=== PATIENT | female | born 1940 | race Caucasian/White ===

== ENCOUNTER 2019-09-24 14:35 | Inpatient (IN) | payer OTHER ==
[~2019-09-24] VITALS: Ht 154.9 cm; Wt 62.9 kg
[2019-09-24 14:47] VITALS: BP 116/46
[2019-09-24 15:11] LABS: BASO # 0.1 10*3/uL (0.0-0.1); BASO % 1.1 % (0.0-1.0); EOS # 0.1 10*3/uL (0.0-0.4); EOS % 1.8 % (1.0-4.0); LYMPH # 1.1 10*3/uL (1.3-4.4); LYMPH % 15.2 % (27.0-41.0); MEAN CELL VOLUME 98.2 fl (81.0-99.0); MEAN CORPUSCULAR HGB CONC 32.6 g/dl (33.0-37.0); MEAN PLATELET VOLUME 10.9 fl (9.6-12.3); MONO % 14.2 % (3.0-9.0); NEUT # 4.7 10*3/uL (2.3-7.9); NEUT % 67.1 % (47.0-73.0); PLATELET COUNT AUTOMATED 210 10*3/uL (130-400); RED BLOOD COUNT 3.87 10*6/uL (4.10-5.10); RED CELL DISTRI WIDTH 15.5 % (0-14.5)
[2019-09-24 15:22] LABS: ACT PARTIAL THROMBO TIME 24.9 SECONDS (20.0-32.1); INTERNATIONAL NORM RATIO 1.2 (2.0-3.5)
[2019-09-24 15:26] LABS: ALBUMIN 2.5 gm/dl (3.1-4.5); ALKALINE PHOSPHATASE 224 U/L (45-117); BUN 21 mg/dl (7-24); CHLORIDE 106 mmol/L (98-107); CREATININE 1.02 mg/dL (0.55-1.02); LIPASE 149 U/L (73-393); POTASSIUM 4.5 mmol/L (3.5-5.1); SGOT/AST 71 IU/L (3-35); SGPT/ALT 47 U/L (12-78); SODIUM 137 mmol/L (136-145); TOTAL PROTEIN 6.9 gm/dL (6.4-8.2); TROPONIN I 0.019 ng/ml (<0.045)
--- NOTE | 2019-09-24 16:02 | NUR ---
PT RESTING COMFORTABLY IN BED. SAFETY PRECAUTION INTACT. CALL LIGHT WITHIN REACH.
[2019-09-24 17:49] LABS: BILIRUBIN NEGATIVE (NEGATIVE); BLOOD TRACE-INTACT (NEGATIVE); CLARITY SL CLOUDY (CLEAR); COLOR YELLOW (YELLOW); GLUCOSE NEGATIVE (NEGATIVE); KETONE NEGATIVE (NEGATIVE)
[2019-09-24 17:50] LABS: LEUKO ESTERASE NEGATIVE (NEGATIVE); NITRITE POSITIVE (NEGATIVE); UROBILINOGEN 0.2 E.U./dl (0.2-1.0)
[2019-09-24 17:55] LABS: BACTERIA 4+; MUCOUS TRACE; RBC 0-2 rbc/hpf (0-2)
--- NOTE | 2019-09-24 18:08 | NUR ---
A 79, admitted to , under the services of YEHUDA Quiles DO with a diagnosis of CHF. Chief complaint is GENERALIZED WEAKNESS, LOWER EXTREMITY EDEMA, DRY COUGH. Patient arrived via bed from ER. Monitor applied. Initial assessment completed. Vital signs taken and recorded. YEHUDA QUILES DO notified of admission to the unit. Orders received. See assessment for past medical history, medications and allergies. Patient and/or family oriented to unit. [facility]. Clothing/patient valuable form completed. RENU PALM
[2019-09-24 18:20] VITALS: BP 124/52
--- NOTE | 2019-09-24 18:57 | NUR ---
UNABLE TO VERIFY MED REC DUE TO GRANDDAUGHTER TOOK MED LIST HOME WITH HER - WILL PASS ALONG TO RECEIVING NURSE.
--- NOTE | 2019-09-24 18:57 | NUR ---
PAGED REGARDING CONSULT
[2019-09-24 20:00] VITALS: BP 122/53
[2019-09-24] MEDS ORDERED: IMDUR SA30 MG PO (21:20)
[2019-09-24] MEDS ORDERED: LACTULOSE10 GM/151 PO (21:21)
[2019-09-24] MEDS ORDERED: TOPROL XL50 M1 PO (21:21)
[2019-09-24] MEDS ORDERED: PROTONIX40 MG PO (21:22)
[2019-09-24] MEDS ORDERED: ALDACTONE50 M1 PO (21:22)
[2019-09-24] MEDS ORDERED: LASIX40 MG PO (21:23)
[2019-09-24] MEDS ORDERED: XANAX0.25 MG PO (21:24)
[2019-09-24] MEDS ORDERED: XIFAXAN550 MG PO (21:24)
--- NOTE | 2019-09-24 21:34 | NUR ---
NOTIFIED DR. MEJIA PATIENTS MED REC IS UP TO DATE.
[2019-09-25] VITALS: BP 103/41
[2019-09-25 06:12] LABS: BASO # 0.1 10*3/uL (0.0-0.1); BASO % 1.5 % (0.0-1.0); EOS # 0.3 10*3/uL (0.0-0.4); EOS % 4.8 % (1.0-4.0); HEMATOCRIT 29.1 % (37.0-47.0); LYMPH # 1.5 10*3/uL (1.3-4.4); LYMPH % 24.4 % (27.0-41.0); MEAN CELL VOLUME 96.4 fl (81.0-99.0); MEAN CORPUSCULAR HGB 32.5 pg (27.0-31.0); MEAN CORPUSCULAR HGB CONC 33.7 g/dl (33.0-37.0); MEAN PLATELET VOLUME 11.1 fl (9.6-12.3); MONO % 16.1 % (3.0-9.0); NEUT # 3.3 10*3/uL (2.3-7.9); NEUT % 52.7 % (47.0-73.0); PLATELET COUNT AUTOMATED 162 10*3/uL (130-400); RED BLOOD COUNT 3.02 10*6/uL (4.10-5.10); RED CELL DISTRI WIDTH 15.4 % (0-14.5); WHITE BLOOD COUNT 6.2 10*3/uL (4.8-10.8)
[2019-09-25 06:14] LABS: ALBUMIN 1.8 gm/dl (3.1-4.5); BUN 23 mg/dl (7-24); CHLORIDE 108 mmol/L (98-107); CHOLESTEROL 124 mg/dL (<200); POTASSIUM 3.9 mmol/L (3.5-5.1); SGOT/AST 41 IU/L (3-35); SGPT/ALT 30 U/L (12-78); SODIUM 140 mmol/L (136-145); TOTAL PROTEIN 4.7 gm/dL (6.4-8.2)
[2019-09-25 06:26] LABS: ALKALINE PHOSPHATASE 146 U/L (45-117); CREATININE 0.93 mg/dL (0.55-1.02); HDL CHOLESTEROL 16 mg/dl (40-60); LDL CHOLESTEROL 96 mg/dL (9-159); TRIGLYCERIDES 62 mg/dl (<150); VLDL CHOLESTEROL 12 mg/dL (6-40)
[2019-09-25 08:00] VITALS: BP 143/58
--- NOTE | 2019-09-25 08:20 | NUR ---
IN PT ROOM AT THIS TIME TO COMPLETE ASSESSMENT. PT STATES THAT SHE IS FEELING MUCH BETTER THAN WHEN SHE FIRST CAME IN, SHE ALSO NOTES THAT THE SWELLING IN HER LEGS HAS DECREASED COMPARED TO YESTERDAY. PT IS WAITING TO HAVE HER ECHO DONE. CALL LIGHT WITHIN REACH, WILL CONTINUE TO MONITOR
--- NOTE | 2019-09-25 09:30 | NUR ---
Occupational Therapy evaluation completed on four with full evaluation to follow. Recommend occupational therapy per plan of care and home with HH upon discharge. Thank you for this referral. Niyah Wisdom OTR/L
--- NOTE | 2019-09-25 09:30 | NUR ---
Vehicle Body Sander in to talk to patient. Patient states lives at home with alone. There are 9 steps in the home. Physician: karissa deluna Pharmacy: out of town Home health services: none Patient's level of ADLs: INDEPENDENT Patient has working utilities: all working DME: none Follow-up physician's appointment after d/c: will be made by hospitalist nurse director upon discharge Does patient want to access PORTAL?: no Discharge plan discussed with patient, she states she lives at home alone, she is independent in adls and ambulation, does her own yard work including mowing the lawn, drives, she states she will return home when medically stable and denies any home needs, case management will follow. KEMI PITT
--- NOTE | 2019-09-25 09:30 | NUR ---
Physical Therapy evaluation completed on fourth floor with full evaluation to follow. Recommend physical therapy per plan of care and home with family support/assist and services upon discharge. Thank you for this referral. Ellen New PT
--- NOTE | 2019-09-25 09:48 | NUR ---
DR SAM IN TO SEE PATIENT
[2019-09-25 12:00] VITALS: BP 131/59
--- NOTE | 2019-09-25 12:00 | NUR ---
ASSUMED CARE OF PT AT THIS TIME. RESTING IN BED. VOICES NO CONCERNS. NO S/S OF DISTRESS NOTED. RESPS EASY, NON LABORED. VSS. WHITE BOARD UPDATED. CALL LIGHT WITHIN REACH
--- NOTE | 2019-09-25 13:14 | NUR ---
PT TAKEN OFF FLOOR TO ULTRASOUND
--- NOTE | 2019-09-25 13:50 | NUR ---
PT BACK FROM ULTRASOUND. RESTING IN BED. VSS.
[2019-09-25 16:00] VITALS: BP 134/54
--- NOTE | 2019-09-25 17:11 | NUR ---
PT REFUSING LACTULOSE, STATES SHE JUST HAD A BOWEL MOVEMENT AND ONLY TAKES LACTULOSE ONCE A DAY AND DOES NOT NEED ANYMORE TODAY
--- NOTE | 2019-09-25 17:15 | NUR ---
Shift chart check completed.
[2019-09-25 20:00] VITALS: BP 114/52
--- NOTE | 2019-09-25 20:00 | NUR ---
PATIENT LAYING IN BED, RESPIRATIONS EASY, NON LABORED. VOICES NO COMPLAINTS. BED IN LOWEST POSITION,CALL LIGHT WITHIN REACH. WILL CONTINUE TO MONITOR.
[2019-09-26] VITALS: BP 107/40
--- NOTE | 2019-09-26 02:00 | NUR ---
PATIENT REQUESTING XANEX TO HELP HER RELAX/SLEEP. XANEX GIVEN AT THIS TIME. WILL CHECK EFFECTIVENESS
--- NOTE | 2019-09-26 04:43 | NUR ---
PATIENT SLEEPING, NO SIGNS OF DISTRESS. XANEX EFFECTIVE. WILL CONTINUE TO MONITOR.
[2019-09-26 06:25] LABS: BASO # 0.1 10*3/uL (0.0-0.1); BASO % 1.1 % (0.0-1.0); EOS # 0.3 10*3/uL (0.0-0.4); EOS % 5.1 % (1.0-4.0); HEMATOCRIT 30.1 % (37.0-47.0); LYMPH # 1.6 10*3/uL (1.3-4.4); LYMPH % 24.4 % (27.0-41.0); MEAN CELL VOLUME 95.6 fl (81.0-99.0); MEAN CORPUSCULAR HGB 32.4 pg (27.0-31.0); MEAN CORPUSCULAR HGB CONC 33.9 g/dl (33.0-37.0); MEAN PLATELET VOLUME 10.9 fl (9.6-12.3); MONO % 15.4 % (3.0-9.0); NEUT # 3.5 10*3/uL (2.3-7.9); NEUT % 53.7 % (47.0-73.0); PLATELET COUNT AUTOMATED 171 10*3/uL (130-400); RED BLOOD COUNT 3.15 10*6/uL (4.10-5.10); RED CELL DISTRI WIDTH 15.7 % (0-14.5); WHITE BLOOD COUNT 6.4 10*3/uL (4.8-10.8)
[2019-09-26 06:49] LABS: ALBUMIN 1.8 gm/dl (3.1-4.5); BUN 20 mg/dl (7-24); CHLORIDE 107 mmol/L (98-107); POTASSIUM 3.9 mmol/L (3.5-5.1); SGOT/AST 46 IU/L (3-35); SGPT/ALT 30 U/L (12-78); SODIUM 139 mmol/L (136-145)
[2019-09-26 06:52] LABS: CREATININE 0.87 mg/dL (0.55-1.02); TOTAL PROTEIN 4.9 gm/dL (6.4-8.2)
[2019-09-26 06:53] LABS: ALKALINE PHOSPHATASE 160 U/L (45-117)
[2019-09-26 08:00] VITALS: BP 110/56
--- NOTE | 2019-09-26 08:57 | NUR ---
Shift chart check completed.
[2019-09-26] MEDS ORDERED: FUROSEMIDE40 MG PO (11:08)
[2019-09-26 12:00] VITALS: BP 125/59
--- NOTE | 2019-09-26 13:39 | NUR ---
Discharge instructions reviewed with patient. Patient receptive and verbalizes understanding. Follow-up care UNDERSTOOD. Written instructions given to patient. NEW RX GIVEN TO PATIENT PAPER PRINT OUT TO HAVE FILLED. PT HAS NO QUESTIONS ON DISCHARGE AT THIS TIME. IV REMOVED, TELE REMOVED. AWAIT FOR FAMILY TO ARRIVE FOR DISCHARGE MONTRELL TAPIA
--- NOTE | 2019-09-26 13:49 | NUR ---
DISCHARGE VIA WHEELCHAIR
== END 2019-09-26 14:06 | disposition home or self-care (01) | DRG 291 ==
LOC: ED 14:35 → 4E 16:43 → EDHOLD 16:43 → 4E 17:05
PROVIDERS: Emergency Medicine; Student in an Organized Health Care Education/Training Program; ADMIT Internal Medicine
DX: I11.0 Hypertensive heart disease with heart failure (principal); E43 Unspecified severe protein-calorie malnutrition; I50.31 Acute diastolic (congestive) heart failure; E87.2 Acidosis; I85.00 Esophageal varices without bleeding; E03.9 Hypothyroidism, unspecified; I25.10 Atherosclerotic heart disease of native coronary artery without angina pectoris; F41.9 Anxiety disorder, unspecified; R73.9 Hyperglycemia, unspecified; R74.0 Nonspecific elevation of levels of transaminase and lactic acid dehydrogenase [LDH]; K74.60 Unspecified cirrhosis of liver; E66.3 Overweight; M81.0 Age-related osteoporosis without current pathological fracture; E88.09 Other disorders of plasma-protein metabolism, not elsewhere classified; Z68.26 Body mass index [BMI] 26.0-26.9, adult; I25.2 Old myocardial infarction; Z95.5 Presence of coronary angioplasty implant and graft; Z88.2 Allergy status to sulfonamides; Z88.5 Allergy status to narcotic agent; Z90.710 Acquired absence of both cervix and uterus; Z82.49 Family history of ischemic heart disease and other diseases of the circulatory system; Z79.899 Other long term (current) drug therapy

== ENCOUNTER 2019-11-13 15:02 | Inpatient (IN) | payer OTHER ==
[~2019-11-13] VITALS: Ht 152.4 cm; Wt 60.0 kg
[~2019-11-13 15:02] MED LIST: ALDACTONE50 M1 PO; FUROSEMIDE40 MG PO; IMDUR SA30 MG PO; LACTULOSE10 GM/151 PO; LASIX40 MG PO; PROTONIX40 MG PO; TOPROL XL50 M1 PO; XANAX0.25 MG PO; XIFAXAN550 MG PO
[2019-11-13 15:13] VITALS: BP 135/64
[2019-11-13 16:49] LABS: BILIRUBIN NEGATIVE (NEGATIVE); BLOOD NEGATIVE (NEGATIVE); CLARITY CLEAR (CLEAR); COLOR YELLOW (YELLOW); GLUCOSE NEGATIVE (NEGATIVE); KETONE NEGATIVE (NEGATIVE); LEUKO ESTERASE NEGATIVE (NEGATIVE); NITRITE NEGATIVE (NEGATIVE); SPECIFIC GRAVITY 1.015 (1.005-1.030); UROBILINOGEN 0.2 E.U./dl (0.2-1.0)
[2019-11-13 16:54] LABS: WBC 0-2 wbc/hpf (0-5)
[2019-11-13 16:55] LABS: BACTERIA 2+
[2019-11-13 17:05] LABS: BASO # 0.1 10*3/uL (0.0-0.1); BASO % 1.4 % (0.0-1.0); EOS # 0.3 10*3/uL (0.0-0.4); EOS % 4.9 % (1.0-4.0); HEMATOCRIT 35.6 % (37.0-47.0); LYMPH # 1.2 10*3/uL (1.3-4.4); LYMPH % 17.3 % (27.0-41.0); MEAN CELL VOLUME 100.3 fl (81.0-99.0); MEAN CORPUSCULAR HGB CONC 32.9 g/dl (33.0-37.0); MEAN PLATELET VOLUME 10.5 fl (9.6-12.3); MONO # 0.9 10*3/uL (0.1-1.0); MONO % 12.6 % (3.0-9.0); NEUT # 4.4 10*3/uL (2.3-7.9); NEUT % 63.4 % (47.0-73.0); PLATELET COUNT AUTOMATED 204 10*3/uL (130-400); RED BLOOD COUNT 3.55 10*6/uL (4.10-5.10); RED CELL DISTRI WIDTH 15.1 % (0-14.5); WHITE BLOOD COUNT 6.9 10*3/uL (4.8-10.8)
[2019-11-13 17:18] LABS: ACT PARTIAL THROMBO TIME 27.1 SECONDS (20.0-32.1); INTERNATIONAL NORM RATIO 1.2 (2.0-3.5)
[2019-11-13 17:33] LABS: ALBUMIN 2.3 gm/dl (3.1-4.5); ALKALINE PHOSPHATASE 274 U/L (45-117); BUN 27 mg/dl (7-24); CHLORIDE 108 mmol/L (98-107); CREATININE 1.33 mg/dL (0.55-1.02); LIPASE 201 U/L (73-393); POTASSIUM 5.5 mmol/L (3.5-5.1); SGOT/AST 82 IU/L (3-35); SGPT/ALT 59 U/L (12-78); SODIUM 136 mmol/L (136-145); TOTAL PROTEIN 6.4 gm/dL (6.4-8.2)
[2019-11-13 17:40] LABS: TROPONIN I < 0.015 ng/ml (<0.045)
--- NOTE | 2019-11-13 19:15 | NUR ---
Transfer of care from [place] [facility].
--- NOTE | 2019-11-13 19:58 | NUR ---
In to see pt at this time.Pt has 22 gauge in lac with good blood return.Pt is refusing cardic moniter at this time.Pt has dimished lung sounds in bases at this time.Pt also has plus one edema noted in lower legs at this time.Pt appears in no distress at this time.
[2019-11-13 19:59] VITALS: BP 115/45
--- NOTE | 2019-11-13 20:07 | NUR ---
in to see pt.Ok for no moniter at this time and orders to not give vancomycin at this time.
--- NOTE | 2019-11-13 20:08 | NUR ---
Family at bedside at this time.
[2019-11-13 20:20] VITALS: BP 124/46
--- NOTE | 2019-11-13 20:41 | NUR ---
Time: 2019 A 79 year old F admitted to 5E under services of JIMMY ARIZA DO. Pt. arrived via stretcher from ER. Chief complaint: PNEUMONIA. RODDY CAMPOVERDE
[2019-11-14] VITALS: BP 111/43
[2019-11-14 06:27] LABS: BASO # 0.1 10*3/uL (0.0-0.1); BASO % 1.7 % (0.0-1.0); EOS # 0.4 10*3/uL (0.0-0.4); EOS % 6.5 % (1.0-4.0); HEMATOCRIT 31.2 % (37.0-47.0); LYMPH # 1.2 10*3/uL (1.3-4.4); LYMPH % 18.4 % (27.0-41.0); MEAN CELL VOLUME 98.4 fl (81.0-99.0); MEAN CORPUSCULAR HGB 32.8 pg (27.0-31.0); MEAN CORPUSCULAR HGB CONC 33.3 g/dl (33.0-37.0); MEAN PLATELET VOLUME 11.1 fl (9.6-12.3); MONO # 0.9 10*3/uL (0.1-1.0); NEUT # 3.9 10*3/uL (2.3-7.9); NEUT % 59.1 % (47.0-73.0); PLATELET COUNT AUTOMATED 187 10*3/uL (130-400); RED BLOOD COUNT 3.17 10*6/uL (4.10-5.10); RED CELL DISTRI WIDTH 15.2 % (0-14.5); WHITE BLOOD COUNT 6.6 10*3/uL (4.8-10.8)
[2019-11-14 07:05] LABS: ALBUMIN 2.1 gm/dl (3.1-4.5); POTASSIUM 4.7 mmol/L (3.5-5.1)
[2019-11-14 07:14] LABS: CREATININE 1.13 mg/dL (0.55-1.02); THYROID STIM HORMONE (HS) 1.99 uIU/ml (0.358-4.75); TOTAL PROTEIN 5.6 gm/dL (6.4-8.2)
[2019-11-14 07:56] LABS: VITAMIN D, 25-HYDROXY 36.1 ng/mL (30-100)
[2019-11-14 08:00] VITALS: BP 106/60
--- NOTE | 2019-11-14 11:04 | NUR ---
Dot Compliance Manager in to talk to patient. Patient states lives at HOME with DAUGHTER. There are SEVERAL steps in the home. Physician: YULISA Pharmacy: [facility] Home health services: NONE Patient's level of ADLs: MINIMAL ASSIST Patient has working utilities: YES DME: [facility] Follow-up physician's appointment after d/c: WILL BE MADE BY HOSPITALIST NURSE DIRECTOR ON DISCHARGE Does patient want to access PORTAL?: NO Discharge plan PT LIVES AT HOME WITH HER DAUGHTER. STATES SHE NEEDS SOME ASSISTANCE WITH HER CARE. PT IS REQUESING HOME HEALTH ON DISCHARGE BUT NOT SURE OF NAME OF COMPANY SHE WANTS. SHE WILL CHECK WITH DAUGHTER. DENIES ANY OTHER NEEDS. PLAN IS TO RETURN HOME WITH DAUGHTER WHEN MEDICALLY STABLE. STATES SHE WILL HAVE A RIDE HOME. SUZETTE LESLIE
--- NOTE | 2019-11-14 11:44 | NUR ---
ATTEMPTED TO CALL DAUGHTER LYUBOV TO SEE IF SHE COULD PROVIDE ME WITH A NAME OF HOME HEALTH PT HAS HAD IN THE PAST. NO ANSWER AND UNABLE TO LEAVE MESSAGE VOICE MAILBOX NOT SET UP.
[2019-11-14] MEDS ORDERED: DOXYCYCLINE100 M3 PO (12:10)
--- NOTE | 2019-11-14 14:15 | NUR ---
Discharge instructions reviewed with patient/family. Patient receptive and verbalizes understanding. Follow-up care arranged. Written instructions given to patient/family. CARLOS ALBERTO MULLINS
--- NOTE | 2019-11-26 09:39 | NUR ---
Glenny from [facility] called stating they never received any clinicals for her 11/13/2019 admission. Faxed clinicals to [phone] reference number [id number]
== END 2019-11-14 14:15 | disposition home or self-care (01) | DRG 177 ==
LOC: ED 15:02 → EDHOLD 18:46 → 5E 19:11
PROVIDERS: Internal Medicine; Nurse Practitioner Family; ADMIT Emergency Medicine
DX: J69.0 Pneumonitis due to inhalation of food and vomit (principal); N17.0 Acute kidney failure with tubular necrosis; E43 Unspecified severe protein-calorie malnutrition; I85.10 Secondary esophageal varices without bleeding; R74.0 Nonspecific elevation of levels of transaminase and lactic acid dehydrogenase [LDH]; D53.9 Nutritional anemia, unspecified; E87.5 Hyperkalemia; F41.9 Anxiety disorder, unspecified; K74.60 Unspecified cirrhosis of liver; I50.9 Heart failure, unspecified; I25.10 Atherosclerotic heart disease of native coronary artery without angina pectoris; E03.9 Hypothyroidism, unspecified; E66.3 Overweight; M81.0 Age-related osteoporosis without current pathological fracture; L89.151 Pressure ulcer of sacral region, stage 1; Z66 Do not resuscitate; Z51.5 Encounter for palliative care; Z88.5 Allergy status to narcotic agent; Z88.2 Allergy status to sulfonamides; Z90.710 Acquired absence of both cervix and uterus; Z95.5 Presence of coronary angioplasty implant and graft; Z82.49 Family history of ischemic heart disease and other diseases of the circulatory system; Z84.89 Family history of other specified conditions; I25.2 Old myocardial infarction; Z79.899 Other long term (current) drug therapy; Z68.25 Body mass index [BMI] 25.0-25.9, adult

== ENCOUNTER 2019-12-11 17:15 | Emergency (ER) | payer OTHER ==
[~2019-12-11] VITALS: Wt 65.8 kg
[~2019-12-11 17:15] MED LIST changes: +DOXYCYCLINE100 M3 PO
[2019-12-11 18:18] LABS: BASO # 0.1 10*3/uL (0.0-0.1); EOS # 0.2 10*3/uL (0.0-0.4); EOS % 2.2 % (1.0-4.0); HEMATOCRIT 34.3 % (37.0-47.0); LYMPH # 1.1 10*3/uL (1.3-4.4); LYMPH % 13.2 % (27.0-41.0); MEAN CELL VOLUME 96.6 fl (81.0-99.0); MEAN CORPUSCULAR HGB 32.1 pg (27.0-31.0); MEAN CORPUSCULAR HGB CONC 33.2 g/dl (33.0-37.0); MEAN PLATELET VOLUME 10.3 fl (9.6-12.3); MONO # 1.4 10*3/uL (0.1-1.0); MONO % 16.3 % (3.0-9.0); NEUT # 5.8 10*3/uL (2.3-7.9); NEUT % 66.8 % (47.0-73.0); PLATELET COUNT AUTOMATED 230 10*3/uL (130-400); RED BLOOD COUNT 3.55 10*6/uL (4.10-5.10); RED CELL DISTRI WIDTH 15.2 % (0-14.5); WHITE BLOOD COUNT 8.6 10*3/uL (4.8-10.8)
[2019-12-11 18:34] LABS: ALBUMIN 2.3 gm/dl (3.1-4.5); CREATININE 1.21 mg/dL (0.55-1.02); POTASSIUM 4.8 mmol/L (3.5-5.1); TOTAL PROTEIN 6.5 gm/dL (6.4-8.2)
[2019-12-11] MEDS ORDERED: MIRALAX119 GM PO (21:51)
== END 2019-12-11 22:09 | disposition home or self-care (01) ==
LOC: ED 17:15
PROVIDERS: Nurse Practitioner Family
DX: K59.00 Constipation, unspecified (principal); Z88.2 Allergy status to sulfonamides; Z88.5 Allergy status to narcotic agent; Z79.899 Other long term (current) drug therapy